=== PATIENT | male | born 1975 | race Caucasian/White ===

== ENCOUNTER 2019-11-29 14:41 | Emergency (ER) | payer BC ==
[~2019-11-29] VITALS: Ht 165.1 cm; Wt 77.1 kg
[~2019-11-29 14:41] MED LIST: ACETAMINOPHEN325 M1 PO; KEFLEX500 MG PO; NOHOMEMEDICATIONS; ZOFRAN4 MG PO
[2019-11-29] MEDS ORDERED: NAPROSYN500 MG PO (16:12)
[2019-11-29] MEDS ORDERED: TRAMADOL 50 MG50 MG PO (16:12)
[2019-11-29] MEDS ORDERED: NORFLEX100 MG PO (16:12)
[2019-11-29 16:35] VITALS: BP 137/86
== END 2019-11-29 16:43 | disposition home or self-care (01) ==
LOC: ER 14:41
DX: S39.012A Strain of muscle, fascia and tendon of lower back, initial encounter (principal); S46.811A Strain of other muscles, fascia and tendons at shoulder and upper arm level, right arm, initial encounter; F17.210 Nicotine dependence, cigarettes, uncomplicated; V89.2XXA Person injured in unspecified motor-vehicle accident, traffic, initial encounter; Y93.89 Activity, other specified; Y92.89 Other specified places as the place of occurrence of the external cause; Y99.8 Other external cause status

== ENCOUNTER 2020-10-02 12:58 | Emergency (ER) | payer BC ==
[~2020-10-02] VITALS: Ht 167.6 cm; Wt 77.1 kg
[~2020-10-02 12:58] MED LIST changes: +NAPROSYN500 MG PO; +NORFLEX100 MG PO; +TRAMADOL 50 MG50 MG PO
[2020-10-02 13:44] LABS: URINE BILIRUBIN NEGATIVE (Negative); URINE BLOOD NEGATIVE (Negative); URINE CLARITY CLEAR; URINE COLOR YELLOW; URINE GLUCOSE-RANDOM* NEGATIVE (Negative); URINE KETONES NEGATIVE (Negative); URINE LEUKOCYTES-REFLEX NEGATIVE (Negative); URINE NITRITE-REFLEX NEGATIVE (Negative); URINE PROTEIN (DIPSTICK) NEGATIVE (Negative); URINE UROBILINOGEN 0.2 E.U./dl (0.2-1.0)
[2020-10-02] MEDS ORDERED: DOXYCYCLINE 10100 MG PO (16:04)
[2020-10-02 16:12] VITALS: BP 142/80
== END 2020-10-02 16:13 | disposition home or self-care (01) ==
LOC: ER 12:58
PROVIDERS: Emergency Medicine
DX: N45.1 Epididymitis (principal); F17.210 Nicotine dependence, cigarettes, uncomplicated; Z79.899 Other long term (current) drug therapy; Z88.8 Allergy status to other drugs, medicaments and biological substances